=== PATIENT | female | born 1995 | race Caucasian/White ===

== ENCOUNTER → 2016-05-22 | Outpatient (CLI) | payer OTHER ==
[2016-05-22 18:47] LABS: ALT 34 U/L (9-52); AST 21 U/L (14-36); Alkaline Phosphatase 39 U/L (38-126); Anion Gap 13 mmol/L; Blood Urea Nitrogen 11 mg/dL (7-17); Calcium 9.4 mg/dL (8.4-10.2); Carbon Dioxide 26 mmol/L (22-30); Chloride 102 mmol/L (98-107); Glucose 75 mg/dL (74-99); Iron 83 ug/dL (37-170); Non-African American GFR(MDRD) >60 (>60 ml/min/1.73 sqM); Potassium 4.3 mmol/L (3.5-5.1); Sodium 141 mmol/L (137-145); Total Bilirubin 0.4 mg/dL (0.2-1.3); Total Protein 7.7 g/dL (6.3-8.2)
[2016-05-22 18:56] LABS: % Iron Saturation 23.5 % (20-50); Total Iron Binding Capacity 353 ug/dL (265-497)
[2016-05-22 19:05] LABS: Basophils # (A) 0.1 k/uL (0-0.2); Basophils % (A) 1 %; CH 21.1; Eosinophils # (A) 0.2 k/uL (0-0.7); Eosinophils % (A) 3 %; HCT 41.6 % (34.0-46.0); HDW 2.53; HGB 12.6 gm/dL (11.4-16.0); Hypochromasia Marked; Luc # (Auto) 0.22; Luc % (Auto) 3; Lymphocytes # (A) 3.1 k/uL (1.0-4.8); Lymphocytes % (A) 40 %; MCH 21.5 pg (25.0-35.0); MCHC 30.4 g/dL (31.0-37.0); MCV 70.9 fL (80.0-100.0); Mean Platelet Volume 6.4; Microcytosis Moderate; Monocytes # (A) 0.4 k/uL (0-1.0); Monocytes % (A) 5 %; Neutrophils # (A) 3.8 k/uL (1.3-7.7); Neutrophils % (A) 50 %; RBC 5.87 m/uL (3.80-5.40); RDW 14.4 % (11.5-15.5); WBC 7.7 k/uL (4.0-11.0); WBC (Perox) 7.92
[2016-05-22 20:08] LABS: Vitamin B12 358 pg/mL (239-931)
[2016-05-24 03:18] LABS: EBV - EA (IgG) <5.0 U/mL (<9.0); EBV - VCA IgM <10.0 U/mL (<36.0)
== END | disposition home or self-care (01) ==
LOC: LABWHC1 17:04
PROVIDERS: ATTEND Internal Medicine
DX: R60.0 Localized edema (principal); R59.9 Enlarged lymph nodes, unspecified; R53.83 Other fatigue
CPT/HCPCS: 36415; 80053; 82607; 83540; 83550; 84439; 84443; 85025; 86308; 86663; 86664; 86665

== ENCOUNTER 2017-12-01 14:30 | Emergency (ER) | payer OTHER ==
[2017-12-01] MEDS ORDERED: LORazepam 1 MG TAB PO STA (15:16)
[2017-12-01 15:37] VITALS: RESP 16
--- NOTE | 2017-12-01 15:37 | XR ---
EXAMINATION TYPE: XR chest 2V DATE OF EXAM: 12/01/2017 COMPARISON: NONE HISTORY: Anxiety attack today with shortness of breath. TECHNIQUE: Frontal and lateral views of the chest are obtained. FINDINGS: There is no focal air space opacity, pleural effusion, or pneumothorax seen. The cardiac silhouette size is within normal limits. The osseous structures are intact. IMPRESSION: No acute cardiopulmonary process.
--- NOTE | 2017-12-01 15:49 | ED ---
Chest Pain HPI - General Chief Complaint: Chest Pain Stated Complaint: Chest pain Time Seen by Provider: 12/01/17 14:44 Source: patient, RN notes reviewed, old records reviewed Mode of arrival: ambulatory Limitations: no limitations - History of Present Illness Initial Comments: 21-year-old female presents emergency department today with chief complaint of panic attack. She reports that she was having some chest pain and nausea when this was occurring. Patient states is going on for the past few hours. She's had these symptoms in the past for previous panic attacks. She was previously on Celexa. She states that she's not been suctioned quite some time. She try to call and follow-up with psychiatry but there is no appointments available. She is not seen [facility]. Patient has had no other complaints at this time. She is currently is worried about going back to school. She is going to [employer] majoring in psychology. She does have good support group and family and friends. Patient states that she has had no other concern for suicidal ideation or any other complaint. - Related Data Previous Rx's Medication Instructions Recorded LORazepam [Ativan] 0.5 mg PO BID #6 tab 12/01/17 Allergies Allergy/AdvReac Type Severity Reaction Status Date / Time peanut Allergy Anaphylaxis Verified 12/01/17 14:42 Review of Systems ROS Statement: Those systems with pertinent positive or pertinent negative responses have been documented in the HPI. ROS Other: All systems not noted in ROS Statement are negative. EKG Findings - EKG Comments: EKG Findings:: EKG shows normal sinus rhythm with sinus arrhythmia. Normal EKG. Ventricular rate 60 bpm. Was 158. QRS duration 78 ms. QT QTc is 390/ 414. Past Medical History Past Medical History: Asthma History of Any Multi-Drug Resistant Organisms: None Reported Past Surgical History: No Surgical Hx Reported Past Psychological History: Anxiety, Depression Smoking Status: Never smoker Past Alcohol Use History: None Reported Past Drug Use History: None Reported General Exam - General Exam Comments Initial Comments: 21-year-old female. Alert and oriented. No significant distress. Limitations: no limitations General appearance: alert, in no apparent distress Head exam: Present: atraumatic, normocephalic, normal inspection Eye exam: Present: normal appearance, PERRL, EOMI. Absent: scleral icterus, conjunctival injection, periorbital swelling ENT exam: Present: normal exam, mucous membranes moist Neck exam: Present: normal inspection. Absent: tenderness, meningismus, lymphadenopathy Respiratory exam: Present: normal lung sounds bilaterally. Absent: respiratory distress, wheezes, rales, rhonchi, stridor Cardiovascular Exam: Present: regular rate, normal rhythm, normal heart sounds. Absent: systolic murmur, diastolic murmur, rubs, gallop, clicks GI/Abdominal exam: Present: soft, normal bowel sounds. Absent: distended, tenderness, guarding, rebound, rigid Extremities exam: Present: normal inspection, full ROM, normal capillary refill. Absent: tenderness, pedal edema, joint swelling, calf tenderness Back exam: Present: normal inspection Neurological exam: Present: alert, oriented X3, CN II-XII intact Psychiatric exam: Present: normal mood, anxious. Absent: normal affect (Is a somewhat of a flat affect.) Skin exam: Present: warm, dry, intact, normal color. Absent: rash Course Vital Signs 12/01/17 12/01/17 14:39 15:15 Temperature 98.8 F Pulse Rate 80 Respiratory 18 16 Rate Blood Pressure 119/82 O2 Sat by Pulse 98 Oximetry Chest [facility] Patient's 21-year-old female presents with chest pain after a panic attack. Patient states she's been chilling with anxiety depression for quite some time. She's been off of her Celexa for many years. She should follow up with psychiatry but is not able to secure an appointment soon. Patient had a panic attack today and was brought in by mother. She denies any suicidal ideations. Patient states that she agrees to safety contract. Patient's mother Patient are looking for medication to help manage her acute panic attacks prior to her going to college. She does have [employer] Patient will be there in a few weeks. Patient was given 1.5 mg of Ativan emergency Department EKG was performed and shows no significant changes. Chest x-ray is negative for any acute cardiothoracic process. Patient given referrals and resources for her to be any mental health. I discussed that I will not start her on Celexa from emergency standpoint. I will give the Patient approximately 6.25 mg of Ativan to help with her symptoms of anxiety to take acutely. I discussed she can follow-up with PCP or questions answered return parameters were discussed. Patient agrees to safety plan and contract. She does not want to be seen by psychiatry evaluated by EPS today. Patient is going home with mother. Disposition Clinical Impression: Panic attack Disposition: HOME SELF-CARE Condition: Good Instructions: Anxiety (ED) Additional Instructions: Patient advised to have close follow-up with PCP. Return to the emergency department if any alarming signs or symptoms occur. Patient should follow up with outpatient resources for mental health. Return to the emergency department if any alarming symptoms occur. Prescriptions: LORazepam [Ativan] 0.5 mg PO BID #6 tab Is patient prescribed a controlled substance at d/c from ED?: Yes When asked, does pt state using other controlled substances?: No If prescribed controlled substance>3 days was MAPS reviewed?: Prescribed <3 Days Referrals: Adriana Menchaca MD [Primary Care Provider] - 1-2 days Time of Disposition: 15:46
[2017-12-01 16:11] VITALS: BP 107/57; PULSE 70; TEMP 98.6
== END 2017-12-01 16:15 | disposition home or self-care (01) ==
LOC: EC 14:30
DX: F41.0 Panic disorder [episodic paroxysmal anxiety] (principal); R07.9 Chest pain, unspecified; R11.0 Nausea; Z91.010 Allergy to peanuts
CPT/HCPCS: 71046; 93005; 99285

== ENCOUNTER 2021-07-09 23:43 | Emergency (ER) | payer OTHER ==
[2021-07-10 00:33] LABS: Appearance,Urine Cloudy (Clear); Bacteria,Urine Rare /hpf; Bilirubin,Urine Negative (Negative); Blood,Urine Negative (Negative); Color,Urine Light Yellow; Glucose,Urine (UA) Negative (Negative); Ketones,Urine Negative (Negative); Leukocyte Esterase,Urine Negative (Negative); Mucus,Urine Rare /hpf; Nitrite,Urine Negative (Negative); Protein,Urine Negative (Negative); RBC,Urine 1 /hpf (0-5); Specific Gravity,Urine 1.007 (1.001-1.035); Squamous Epithelial Cell,Urine 17 /hpf (0-4); Urobilinogen,Urine <2.0 mg/dL (<2.0); WBC,Urine 3 /hpf (0-5)
[2021-07-10] MEDS ORDERED: SODIUM CHLORIDE 0.9% 500 ML 500 ML IV STA (00:55)
[2021-07-10] MEDS ORDERED: KETOROLAC 15 MG/ML 1 ML VIAL IVP STA (00:55)
--- NOTE | 2021-07-10 01:00 | ED ---
General Adult HPI - General Chief complaint: Urogenital Stated complaint: abdominal pain Time Seen by Provider: 07/10/21 00:50 Source: patient, family, RN notes reviewed, old records reviewed Mode of arrival: ambulatory - History of Present Illness Initial comments: 25-year-old female well-appearing presents ambulatory with 2 family members complaining of 4 days of right-sided abdominal pain and right flank pain. Patient states that she was treated last week for urinary tract infection with Keflex. She no longer has dysuria but is having this right-sided abdominal pain. She describes the pain as sharp in nature. She denies any fevers, no nausea vomiting or diarrhea. No vaginal bleeding or vaginal discharge. She states that she does have some constipation she believes. No surgical history. Last menstrual period was 10 days ago but she is not sure if she is . Family at bedside is concerned for appendicitis. Only medical history is asthma -: days(s) (4) Location: abdomen, right (RUQ RLQ and right flank) Severity scale (1-10): 6 Quality: sharp Consistency: constant Improves with: none Worsens with: other (palpation) Associated Symptoms: denies other symptoms Treatments Prior to Arrival: none - Related Data Previous Rx's Medication Instructions Recorded LORazepam [Ativan] 0.5 mg PO BID #6 tab 12/01/17 Allergies Allergy/AdvReac Type Severity Reaction Status Date / Time peanut Allergy Anaphylaxis Verified 07/09/21 23:53 Review of Systems ROS Statement: Those systems with pertinent positive or pertinent negative responses have been documented in the HPI. ROS Other: All systems not noted in ROS Statement are negative. Past Medical History Past Medical History: Asthma History of Any Multi-Drug Resistant Organisms: None Reported Past Surgical History: No Surgical Hx Reported Additional Past Surgical History / Comment(s): wisdom teeth Past Psychological History: Anxiety, Depression Smoking Status: Never smoker Past Alcohol Use History: None Reported Past Drug Use History: None Reported General Exam General appearance: alert, in no apparent distress Eye exam: Present: normal appearance. Absent: scleral icterus, conjunctival injection Respiratory exam: Present: normal lung sounds bilaterally. Absent: respiratory distress, wheezes, rales, rhonchi, stridor, chest wall tenderness, accessory muscle use, decreased breath sounds Cardiovascular Exam: Present: regular rate, normal heart sounds. Absent: JVD GI/Abdominal exam: Present: soft, tenderness (RUQ), normal bowel sounds. Absent: distended, guarding, rebound, rigid, mass Extremities exam: Present: normal inspection, normal capillary refill. Absent: pedal edema Back exam: Present: normal inspection. Absent: tenderness, CVA tenderness (R), CVA tenderness (L), rash noted Neurological exam: Present: alert, oriented X3, normal gait Psychiatric exam: Present: normal affect, normal mood Skin exam: Present: warm, dry, normal color. Absent: rash, cyanosis, diaphoretic, pallor Course Vital Signs 07/09/21 23:47 Temperature 97.9 F Pulse Rate 73 Respiratory 19 Rate Blood Pressure 116/70 O2 Sat by Pulse 98 Oximetry Medical Decision Making - Medical Decision Making 25-year-old presents with 4 days of right lower and right upper quadrant abdominal pain radiating into her right flank. She denies any vaginal discharge or vaginal bleeding. CT the abdomen shows a normal appendix. There is no retroperitoneal adenopathy. No inguinal hernia. No free fluid in the pelvis. No pelvic masses. Liver sp shaun stomach pancreas and gallbladder appear Intact and bile duct is not dilated. Urinalysis shows no sign of infection. Urine test is negative. Hemoglobin and hematocrit are stable there is no evidence of leukocytosis. Vital signs are stable and patient is afebrile. At this time I do not have a specific cause of the patient's pain. She was instructed to follow-up with her primary care doctor and return to the emergency room with any new or concerning symptoms. Patient and family are agreeable to this plan of care. Case discussed with Dr. Francisco. - Lab Data Result diagrams: 07/10/21 01:17 07/10/21 01:17 Lab Results 07/09/21 07/09/21 07/10/21 Range/Units 23:55 23:55 01:17 WBC 7.1 (3.8-10.6) k/uL RBC 5.87 H (3.80-5.40) m/uL Hgb 13.5 (11.4-16.0) gm/dL Hct 42.9 (34.0-46.0) % MCV 73.1 L (80.0-100.0) fL MCH 23.0 L (25.0-35.0) pg MCHC 31.5 (31.0-37.0) g/dL RDW 14.0 (11.5-15.5) % Plt Count 263 (150-450) k/uL MPV 7.2 Neutrophils % 47 % Lymphocytes % 42 % Monocytes % 4 % Eosinophils % 4 % Basophils % 1 % Neutrophils # 3.3 (1.3-7.7) k/uL Lymphocytes # 3.0 (1.0-4.8) k/uL Monocytes # 0.3 (0-1.0) k/uL Eosinophils # 0.3 (0-0.7) k/uL Basophils # 0.0 (0-0.2) k/uL Hypochromasia Slight Microcytosis Slight Sodium (137-145) mmol/L Potassium (3.5-5.1) mmol/L Chloride (98-107) mmol/L Carbon Dioxide (22-30) mmol/L Anion Gap mmol/L BUN (7-17) mg/dL Creatinine (0.52-1.04) mg/dL Est GFR (CKD-EPI)AfAm (>60 ml/min/1.73 sqM) Est GFR (CKD-EPI)NonAf (>60 ml/min/1.73 sqM) Glucose (74-99) mg/dL Plasma Lactic Acid [place] (0.7-2.0) mmol/L Calcium (8.4-10.2) mg/dL Total Bilirubin (0.2-1.3) mg/dL AST (14-36) U/L ALT (4-34) U/L Alkaline Phosphatase (38-126) U/L Total Protein (6.3-8.2) g/dL Albumin (3.5-5.0) g/dL Amylase (30-110) U/L Lipase (23-300) U/L Urine Color Light Yellow Urine Appearance Cloudy H (Clear) Urine pH 6.0 (5.0-8.0) Ur Specific [place] 1.007 (1.001-1.035) Urine Protein Negative (Negative) Urine Glucose (UA) Negative (Negative) Urine Ketones Negative (Negative) Urine Blood Negative (Negative) Urine Nitrite Negative (Negative) Urine Bilirubin Negative (Negative) Urine Urobilinogen <2.0 (<2.0) mg/dL Ur Leukocyte Esterase Negative (Negative) Urine RBC 1 (0-5) /hpf Urine WBC 3 (0-5) /hpf Ur Squamous Epith Cells 17 H (0-4) /hpf Urine Bacteria Rare H (None) /hpf Urine Mucus Rare H (None) /hpf Urine HCG, Qual Not Detected (Not Detectd) 07/10/21 07/10/21 Range/Units 01:17 01:17 WBC (3.8-10.6) k/uL RBC (3.80-5.40) m/uL Hgb (11.4-16.0) gm/dL Hct (34.0-46.0) % MCV (80.0-100.0) fL MCH (25.0-35.0) pg MCHC (31.0-37.0) g/dL RDW (11.5-15.5) % Plt Count (150-450) k/uL MPV Neutrophils % % Lymphocytes % % Monocytes % % Eosinophils % % Basophils % % Neutrophils # (1.3-7.7) k/uL Lymphocytes # (1.0-4.8) k/uL Monocytes # (0-1.0) k/uL Eosinophils # (0-0.7) k/uL Basophils # (0-0.2) k/uL Hypochromasia Microcytosis Sodium 137 (137-145) mmol/L Potassium 4.3 (3.5-5.1) mmol/L Chloride 103 (98-107) mmol/L Carbon Dioxide 23 (22-30) mmol/L Anion Gap 11 mmol/L BUN 9 (7-17) mg/dL Creatinine 0.69 (0.52-1.04) mg/dL Est GFR (CKD-EPI)AfAm >90 (>60 ml/min/1.73 sqM) Est GFR (CKD-EPI)NonAf >90 (>60 ml/min/1.73 sqM) Glucose 85 (74-99) mg/dL Plasma Lactic Acid [place] 1.8 (0.7-2.0) mmol/L Calcium 9.1 (8.4-10.2) mg/dL Total Bilirubin 0.3 (0.2-1.3) mg/dL AST 29 (14-36) U/L ALT 27 (4-34) U/L Alkaline Phosphatase 38 (38-126) U/L Total Protein 7.7 (6.3-8.2) g/dL Albumin 4.5 (3.5-5.0) g/dL Amylase 91 (30-110) U/L Lipase 110 (23-300) U/L Urine Color Urine Appearance (Clear) Urine pH (5.0-8.0) Ur Specific [place] (1.001-1.035) Urine Protein (Negative) Urine Glucose (UA) (Negative) Urine Ketones (Negative) Urine Blood (Negative) Urine Nitrite (Negative) Urine Bilirubin (Negative) Urine Urobilinogen (<2.0) mg/dL Ur Leukocyte Esterase (Negative) Urine RBC (0-5) /hpf Urine WBC (0-5) /hpf Ur Squamous Epith Cells (0-4) /hpf Urine Bacteria (None) /hpf Urine Mucus (None) /hpf Urine HCG, Qual (Not Detectd) Disposition Clinical Impression: Abdominal pain Disposition: HOME SELF-CARE Instructions (If sedation given, give patient instructions): Abdominal Pain (ED) Additional Instructions: Follow-up with the primary care doctor next week. Return to the emergency room with any new or concerning symptoms including increased pain or fevers. Take Tylenol and or Motrin as needed for pain. You can also use warm compresses. Is patient prescribed a controlled substance at d/c from ED?: No Referrals: Katherine Doll MD [Primary Care Provider] - 1-2 days Time of Disposition: 02:05
[2021-07-10 01:32] LABS: Basophils % (A) 1 %; Eosinophils # (A) 0.3 k/uL (0-0.7); Eosinophils % (A) 4 %; HCT 42.9 % (34.0-46.0); HGB 13.5 gm/dL (11.4-16.0); Hypochromasia Slight; Lymphocytes % (A) 42 %; MCHC 31.5 g/dL (31.0-37.0); MCV 73.1 fL (80.0-100.0); Mean Platelet Volume 7.2; Microcytosis Slight; Monocytes # (A) 0.3 k/uL (0-1.0); Monocytes % (A) 4 %; Neutrophils # (A) 3.3 k/uL (1.3-7.7); Neutrophils % (A) 47 %; Platelet Count 263 k/uL (150-450); RBC 5.87 m/uL (3.80-5.40); WBC 7.1 k/uL (3.8-10.6)
[2021-07-10 01:47] LABS: ALT 27 U/L (4-34); AST 29 U/L (14-36); African American GFR (CKD) >90 (>60 ml/min/1.73 sqM); Albumin 4.5 g/dL (3.5-5.0); Alkaline Phosphatase 38 U/L (38-126); Amylase 91 U/L (30-110); Anion Gap 11 mmol/L; Blood Urea Nitrogen 9 mg/dL (7-17); Calcium 9.1 mg/dL (8.4-10.2); Carbon Dioxide 23 mmol/L (22-30); Chloride 103 mmol/L (98-107); Glucose 85 mg/dL (74-99); Lipase 110 U/L (23-300); Non-African American GFR(CKD) >90 (>60 ml/min/1.73 sqM); Potassium 4.3 mmol/L (3.5-5.1); Sodium 137 mmol/L (137-145); Total Bilirubin 0.3 mg/dL (0.2-1.3); Total Protein 7.7 g/dL (6.3-8.2)
--- NOTE | 2021-07-10 01:53 | CT ---
EXAMINATION TYPE: CT abdomen pelvis w con DATE OF EXAM: 07/10/2021 COMPARISON: None HISTORY: RLQ pain CT DLP: 578.9 mGycm Automated exposure control for dose reduction was used. CONTRAST: Performed with IV Contrast, patient injected with 100 mL of Isovue 300. Images obtained from the diaphragm to the floor of the pelvis with IV contrast. Lung bases are clear. There is no pleural effusion. Heart size is normal. There is no pericardial effusion. Liver spleen a nd stomach pancreas and gallbladder appear intact. Bile ducts are not dilated. There is no adrenal ma ss. Kidneys show satisfactory contrast opacification. There is no hydronephrosis. Ureters are not dil ated. There is no retroperitoneal adenopathy. Bladder distends smoothly. There is no inguinal hernia. There is no free fluid in the pelvis. There is no evidence of pelvic mass. Appendix is posterior and appea rs normal. Lumbar vertebrae have normal alignment. Posterior element are intact. There is no compression fractur e. Disc spaces are fairly normal. Bony pelvis appears normal hip joints are normal. Sacroiliac joints appear normal. IMPRESSION: Normal CT scan of the abdomen and pelvis. Normal appendix.
[2021-07-10 03:25] VITALS: BP 109/72; PULSE 68; RESP 18; TEMP 98.1
== END 2021-07-10 02:37 | disposition home or self-care (01) ==
LOC: EC 23:43
DX: R10.11 Right upper quadrant pain (principal); R10.31 Right lower quadrant pain; F41.9 Anxiety disorder, unspecified; F32.A Depression, unspecified; Z79.899 Other long term (current) drug therapy
CPT/HCPCS: 36415; 80053; 82150; 83605; 83690; 85025; 81001; 81025; 74177; 99284; 96374; J1885; Q9967